=== PATIENT | male | born 1975 | race Caucasian/White ===

== ENCOUNTER 2018-03-13 22:36 | Emergency (ER) | payer MEDICAID ==
[~2018-03-13] VITALS: Ht 170.2 cm; Wt 94.3 kg
[2018-03-13 22:47] VITALS: Ht 170.2 cm; Wt 94.3 kg
[2018-03-14 00:39] LABS: CALCIUM 8.4 mg/dL (8.5-10.1); CARBON DIOXIDE 23.4 mmol/L (21-32); CHLORIDE SERUM 106 mmol/L (98-107); CREATININE SERUM 1.2 mg/dL (0.7-1.3); GFR1 > 60 mL/min; GLUCOSE SERUM 109 mg/dL (74-106); POTASSIUM SERUM 3.9 mmol/L (3.5-5.1); SODIUM SERUM 139 mmol/L (136-145)
[2018-03-14 00:42] LABS: BASOPHIL % 0.3 % (0-2); PLATELET COUNT 323 x10^3mcL (130-400); RED CELL DISTRIBUTION WIDTH 12.8 % (11.5-14.5)
[2018-03-14 00:57] LABS: UA SPECIFIC GRAVITY 1.025 (1.005-1.035); microscopic required? YES; urine erythrocyte 3+ (NEGATIVE)
[2018-03-14 05:03] VITALS: BP 140/108
== END 2018-03-14 05:03 | disposition home or self-care (01) ==
LOC: ED 22:36
PROVIDERS: Emergency Medicine
DX: N23 Unspecified renal colic (principal)
CPT/HCPCS: 36415; J1885; J2270; Q0092

== ENCOUNTER 2020-04-24 20:29 | Emergency (ER) | payer SELFPAY ==
[~2020-04-24] VITALS: Ht 170.2 cm; Wt 77.1 kg
[2020-04-24 21:01] VITALS: Ht 170.2 cm; Wt 77.1 kg
== END 2020-04-24 22:14 | disposition home or self-care (01) ==
LOC: ED 20:29
DX: U07.1 COVID-19 (principal); B34.9 Viral infection, unspecified; Z87.442 Personal history of urinary calculi
CPT/HCPCS: U0003-CS